=== PATIENT | female | born 1970 ===

== ENCOUNTER 2023-04-29 12:27 | Inpatient (IN) | payer OTHER ==
--- NOTE | 2023-04-29 13:00 | ED ---
Alcohol HPI - General Chief Complaint: Alcohol Stated Complaint: ETOH Time Seen by Provider: 04/29/23 12:33 Source: patient, EMS Mode of arrival: EMS Limitations: no limitations - History of Present Illness Initial Comments: Patient is a 52-year-old woman who presents because she states she is feeling really badly drunk. Patient states that she drinks probably a fifth per day going on for quite some time now. She states when she tries to stop drinking she gets very anxious and shaky. Patient denies having recent fall or trauma. Denies pain. 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) Recent Trauma: No Associated Symptoms: denies other symptoms Treatments Prior to Arrival: none Chronic Alcohol Use: Yes - Related Data Home Medications Medication Instructions Recorded Confirmed Magnesium(Unknown) 1 tab PO DAILY 04/29/23 04/29/23 Multivit-Min/FA/Lycopen/Lutein 1 tab PO DAILY 04/29/23 04/29/23 [Centrum Silver Tablet] Vitamin D3(Unknown) 1 tab PO DAILY 04/29/23 04/29/23 Allergies Allergy/AdvReac Type Severity Reaction Status Date / Time No Known Allergies Allergy Verified 04/29/23 17:03 Review of Systems ROS Statement: Those systems with pertinent positive or pertinent negative responses have been documented in the HPI. ROS Other: All systems not noted in ROS Statement are negative. Constitutional: Denies: fever, weakness Eyes: Denies: vision change Respiratory: Denies: cough, dyspnea Cardiovascular: Denies: chest pain, palpitations, edema Gastrointestinal: Reports: nausea. Denies: abdominal pain, vomiting, diarrhea, melena, hematochezia Genitourinary: Denies: dysuria, hematuria Musculoskeletal: Denies: back pain Skin: Denies: rash Neurological: Denies: headache, weakness Psychiatric: Reports: anxiety. Denies: suicidal thoughts Past Medical History Past Medical History: No Reported History History of Any Multi-Drug Resistant Organisms: None Reported Past Surgical History: No Surgical Hx Reported Past Psychological History: No Psychological Hx Reported Smoking Status: Never smoker Past Alcohol Use History: Abuse Past Drug Use History: Marijuana General Exam Limitations: no limitations General appearance: alert, in no apparent distress, appears intoxicated Head exam: Present: atraumatic, normocephalic Eye exam: Present: normal appearance, nystagmus. Absent: scleral icterus, conjunctival injection Neck exam: Present: normal inspection, full ROM. Absent: tenderness Respiratory exam: Present: normal lung sounds bilaterally. Absent: respiratory distress, wheezes, rales, rhonchi, stridor, chest wall tenderness Cardiovascular Exam: Present: regular rate, normal rhythm, normal heart sounds. Absent: systolic murmur, diastolic murmur, rubs, gallop GI/Abdominal exam: Present: soft. Absent: distended, tenderness, guarding, rebound Extremities exam: Present: normal inspection, normal capillary refill Back exam: Present: normal inspection. Absent: vertebral tenderness Neurological exam: Present: alert, CN II-XII intact. Absent: motor sensory deficit Skin exam: Present: warm, dry, intact, normal color. Absent: rash Course Vital Signs 04/29/23 04/29/23 04/29/23 12:34 13:41 16:10 Temperature 98.4 F Pulse Rate 85 82 90 Pulse Rate [ Left] Respiratory 18 18 18 Rate Blood Pressure 111/83 106/83 101/75 Blood Pressure [Right Arm] O2 Sat by Pulse 95 100 94 L Oximetry 04/29/23 04/29/23 18:54 20:00 Temperature 98.7 F Pulse Rate 97 87 Pulse Rate [ 85 Left] Respiratory 18 20 Rate Blood Pressure 101/71 113/83 Blood Pressure 144/91 [Right Arm] O2 Sat by Pulse 97 98 Oximetry Medical Decision Making - Medical Decision Making Was pt. sent in by a medical professional or institution ( PA, SENIOR JAVA DEVELOPER, urgent care, hospital, or residential...) When possible be specific @ - Did you speak to anyone other than the patient for history (EMS, parent, family, police, friend...)? What history was obtained from this source @ -[EMS gave history Did you review nursing and triage notes (agree or disagree)? Why? @ -[I reviewed and agree with nursing and triage notes] Were old charts reviewed (outside hosp., previous admission, EMS record, old EKG, old radiological studies, urgent care reports/EKG's, residential records)? Report findings @ -[No old charts were reviewed] Differential Diagnosis (chest pain, altered mental status, abdominal pain women, abdominal pain men, vaginal bleeding, weakness, fever, dyspnea, syncope, headache, dizziness, GI bleed, back pain, seizure, CVA, palpatations, mental health, musculoskeletal)? @ -[Differential Altered Mental Status: Hypoglycemia, DKA, hypercapnia, ETOH, overdose, CO poisoning, trauma, myxedema coma, HTN encephalopathy, infection, encephalitis, psychosis, intercranial hemorrhage, hepatic encephalopathy, meningitis, CVA, this is not meant to be an all-inclusive list EKG interpreted by me (3pts min.). @ -[As above] X-rays interpreted by me (1pt min.). @ -[None done] CT interpreted by me (1pt min.). @ -[None done] U/S interpreted by me (1pt. min.). @ -[None done] What testing was considered but not performed or refused? (CT, X-rays, U/S, labs )? Why? @ -[None] What meds were considered but not given or refused? Why? @ -[None] Did you discuss the management of the patient with other professionals (professionals i.e. , PA, SENIOR JAVA DEVELOPER, lab, RT, psych nurse, social media developer, business lawyer, teacher, soil science technical officer, manager rn case)? Give summary @ -[Case discussed with admitting physician and treatment recommendations incorporated Was smoking cessation discussed for >3mins.? @ -[No] Was critical care preformed (if so, how long)? @ -[No] Were there social determinants of health that impacted care today? How? (Homelessness, low income, unemployed, alcoholism, drug addiction, transportation, low edu. Level, literacy, decrease access to med. care, residential, rehab)? @ -[No] Was there de-escalation of care discussed even if they declined (Discuss DNR or withdrawal of care, Hospice)? DNR status @ -[No] What co-morbidities impacted this encounter? (DM, HTN, Smoking, COPD, CAD, Cancer, CVA, ARF, Chemo, Hep., AIDS, mental health diagnosis, sleep apnea, morbid obesity)? @ -[None] Was patient admitted / discharged? Hospital course, mention meds given and route, prescriptions, significant lab abnormalities, going to OR and other pertinent info. @ -[Given the patient's level of alcohol consumption and there is significant risk of impending delirium tremens. Patient is admitted to have [facility] protocol Undiagnosed new problem with uncertain prognosis? @ -[No] Drug Therapy requiring intensive monitoring for toxicity (Heparin, Nitro, Insulin, Cardizem)? @ -[No] Were any procedures done? @ -[No] Diagnosis/symptom? @ -[Acute alcohol intoxication Acute, or Chronic, or Acute on Chronic? @ -[Acute Uncomplicated (without systemic symptoms) or Complicated (systemic symptoms)? @ -[Complicated by mental status change Side effects of treatment? @ -[No] Exacerbation, Progression, or Severe Exacerbation? @ -[No] Poses a threat to life or bodily function? How? (Chest pain, USA, DC, pneumonia, PE, COPD, DKA, ARF, appy, cholecystitis, CVA, Diverticulitis, Homicidal, Suicidal, threat to staff... and all critical care pts) @ -[No] - Lab Data Result diagrams: 04/30/23 07:53 04/30/23 11:40 Lab Results 04/29/23 04/29/23 Range/Units 13:44 13:44 WBC 3.7 L (3.8-10.6) k/uL RBC 4.52 (3.80-5.40) m/uL Hgb 15.3 (11.4-16.0) gm/dL Hct 45.2 (34.0-46.0) % MCV 100.1 H (80.0-100.0) fL MCH 33.9 (25.0-35.0) pg MCHC 33.9 (31.0-37.0) g/dL RDW 13.8 (11.5-15.5) % Plt Count 253 (150-450) k/uL MPV 7.4 Neutrophils % (Manual) 39 % Lymphocytes % (Manual) 37 % Monocytes % (Manual) 11 % Eosinophils % (Manual) 12 % Basophils % (Manual) 1 % Neutrophils # (Manual) 1.44 (1.3-7.7) k/uL Lymphocytes # (Manual) 1.37 (1.0-4.8) k/uL Monocytes # (Manual) 0.41 (0-1.0) k/uL Eosinophils # (Manual) 0.44 (0-0.7) k/uL Basophils # (Manual) 0.04 (0-0.2) k/uL Nucleated RBCs 0 (0-0) /100 WBC Manual Slide Review Performed Sodium 145 (137-145) mmol/L Potassium 4.4 (3.5-5.1) mmol/L Chloride 108 H (98-107) mmol/L Carbon Dioxide 27 (22-30) mmol/L Anion Gap 10 mmol/L BUN 10 (7-17) mg/dL Creatinine 0.42 L (0.52-1.04) mg/dL Est GFR (CKD-EPI)AfAm >90 (>60 ml/min/1.73 sqM) Est GFR (CKD-EPI)NonAf >90 (>60 ml/min/1.73 sqM) Glucose 87 (74-99) mg/dL Calcium 9.6 (8.4-10.2) mg/dL Magnesium 1.5 L (1.6-2.3) mg/dL Total Bilirubin 0.5 (0.2-1.3) mg/dL AST 236 H (14-36) U/L ALT 69 H (4-34) U/L Alkaline Phosphatase 62 (38-126) U/L Total Protein 8.0 (6.3-8.2) g/dL Albumin 4.4 (3.5-5.0) g/dL Serum Alcohol 406 H* mg/dL Disposition Clinical Impression: Alcoholic intoxication, Alcohol withdrawal Disposition: ADMITTED IP TO THIS HOSP Condition: Stable Is patient prescribed a controlled substance at d/c from ED?: No
[2023-04-29 14:09] LABS: HCT 45.2 % (34.0-46.0); HGB 15.3 gm/dL (11.4-16.0); MCH 33.9 pg (25.0-35.0); MCHC 33.9 g/dL (31.0-37.0); MCV 100.1 fL (80.0-100.0); Mean Platelet Volume 7.4; Platelet Count 253 k/uL (150-450); RBC 4.52 m/uL (3.80-5.40); RDW 13.8 % (11.5-15.5); WBC 3.7 k/uL (3.8-10.6)
[2023-04-29 14:13] LABS: ALT 69 U/L (4-34); AST 236 U/L (14-36); African American GFR (CKD) >90 (>60 ml/min/1.73 sqM); Albumin 4.4 g/dL (3.5-5.0); Alkaline Phosphatase 62 U/L (38-126); Anion Gap 10 mmol/L; Blood Urea Nitrogen 10 mg/dL (7-17); Calcium 9.6 mg/dL (8.4-10.2); Carbon Dioxide 27 mmol/L (22-30); Chloride 108 mmol/L (98-107); Glucose 87 mg/dL (74-99); Magnesium 1.5 mg/dL (1.6-2.3); Non-African American GFR(CKD) >90 (>60 ml/min/1.73 sqM); Potassium 4.4 mmol/L (3.5-5.1); Sodium 145 mmol/L (137-145); Total Bilirubin 0.5 mg/dL (0.2-1.3)
[2023-04-29 14:24] LABS: Alcohol 406 mg/dL
[2023-04-29 14:31] LABS: Basophils # (M) 0.04 k/uL (0-0.2); Eosinophils # (M) 0.44 k/uL (0-0.7); Lymphocytes # (M) 1.37 k/uL (1.0-4.8); Monocytes # (M) 0.41 k/uL (0-1.0); Neutrophils # (M) 1.44 k/uL (1.3-7.7); Neutrophils % (M) 39 %; Nucleated Red Blood Cells 0 /100 WBC (0-0); Total Cells Counted 100
[2023-04-29] MEDS ORDERED: LORazepam 0.5 MG TAB PO PRN (16:20)
[2023-04-29] MEDS ORDERED: LORazepam 1 MG TAB PO PRN ×2 (16:20)
[2023-04-29] MEDS ORDERED: THIAMINE 100 MG/ML 2 ML VIAL IM STA (16:20)
[2023-04-29] MEDS ORDERED: LORazepam 2 MG/ML INJ IV PRN ×3 (16:20)
[2023-04-29] MEDS ORDERED: SODIUM CHLORIDE 0.9% 1,000 ML IV STA (16:23)
[2023-04-29] MEDS ORDERED: NALOXONE 0.4 MG/ML 1 ML VIAL IV PRN (16:45)
--- NOTE | 2023-04-29 16:49 | P.HPIM ---
History of Present Illness H&P Date: 04/29/23 History of Presenting Illness: Patient is a 52-year-old female with a past medical history of daily alcohol abuse reportedly drinking approximately a fifth or more of alcohol per day. She presented to the emergency department via EMS after being sent from [address] where she reportedly blew a breathalyzer of 0.4%. Patient sent to our facility for alcohol intoxication and need for medical detox. She reports drinking excessively prior to going to her appointment at [address] for admission. Patient reports she wants to stop drinking and has been drinking daily for very long time, many years. In addition patient reports daily cannabis use. She denies smoking cigarettes and denies any other drug use. Patient denies having any other medical history including cardiac disease, pulmonary disease, hypertension, hyperlipidemia, or diabetes. Patient currently denies having any complaints including headache, lightheadedness, dizziness, chest pain, palpitations, shortness of breath, abdominal pain, nausea, vomiting, or experiencing any numbness/tingling/weakness/swelling in her extremities. She denies history of withdrawal seizures and denies previous ICU stays for alcohol withdrawal. She underwent full evaluation in the emergency department. Vital signs upon arrival show blood pressure 111/83, heart rate 85, respiratory rate 18, temp 98.4 F, and SpO2 of 95% on room air. Labs completed and reviewed. CBC showing leukopenia with WBC count of 3.7 and macrocytosis with MCV of 100.1. BMP revealing hyperchloremia with chloride of 108 otherwise normal findings. Liver profile showing elevated AST of 236 and ALT of 69. Magnesium was low at 1.5. Serum alcohol level was elevated at 406. Patient admitted under our services for alcohol intoxication and need for medical detox. Review of systems: Pertinent positives and negatives as discussed in HPI, a complete review of systems was performed and all other systems are negative. Physical exam: Vital signs reviewed and stable. General: Nontoxic, no distress and appears stated age. Derm: Skin warm and dry, normal coloration for ethnicity. Head: Atraumatic, normocephalic and symmetric. Eyes: EOMs intact, no lid lag, and anicteric sclera Mouth: no lip lesions, mucus membranes moist Cardiovascular: regular rate and rhythm with normal S1S2, no murmur, positive posterior tibial pulses bilaterally, and cap refill < 2 seconds. Lungs: Respirations even, regular, and unlabored on room air. Lungs CTA bilaterally, no rhonchi, no rales, no wheezing, and no accessory muscle usage. Abdominal: soft, nontender to palpation, no guarding, no appreciable organomegaly Ext: ROM intact. No gross muscle atrophy, no edema, no contractures Neuro: Speech clear, face symmetrical and CN II-XII grossly intact with no noted focal neuro deficits Psych: Alert and oriented to person, place, time, and situation. Appropriate and pleasant affect. Assessment and Plan of Care: Alcohol intoxication, pending withdrawal Longstanding history of daily alcohol abuse -Order placed for monitoring of CIWA scores and patient to be medicated with Ativan 0.5 mg every 4 hours as needed for CIWA score of 4-5, Ativan 1 mg every 4 hours for CIWA score of 6-7, Ativan 2 mg every 3 hours CIWA score of 8-9, and Ativan 2 mg every 2 hours forr CIWA score of 10 or greater. -Continuous IV hydration. -Thiamine 100 mg twice a day -Multivitamin daily -Folate 1 mg daily -Seizure, fall, aspiration, and elopement precautions in place. -Urine drug screen -Continued close monitoring of electrolytes and replace as needed. -Telemetry monitoring. Daily cannabis use disorder Recommend cessation of use. Data and imaging reviewed: As stated above in HPI The patient is admitted with an anticipated less than 2 midnight stay for evaluation of alcohol intoxication CODE STATUS: Full code DVT prophylaxis: Heparin Anticipated discharge date: Clinical course to be determined Anticipated discharge place: Clinical course to determine Patient was seen independently by Nurse Practitioner. This document was prepared using [employer] dictation software. Please allow for errors in clerk cashier while rare they do occur. Blair Small NP rendered care for this patient independently, reviewed the findings and plan as documented in the note above. I did not physically speak with or examine the patient on this date. Past Medical History Past Medical History: No Reported History History of Any Multi-Drug Resistant Organisms: None Reported Past Surgical History: No Surgical Hx Reported Past Psychological History: No Psychological Hx Reported Smoking Status: Never smoker Past Alcohol Use History: Abuse Past Drug Use History: Marijuana Medications and Allergies Allergies Allergy/AdvReac Type Severity Reaction Status Date / Time No Known Allergies Allergy Verified 04/29/23 17:03 Physical Exam Osteopathic Statement: *. No significant issues noted on an osteopathic structural exam other than those noted in the History and Physical/Consult. Vitals: Vital Signs Temp Pulse Resp BP Pulse Ox 04/29/23 16:10 90 18 101/75 94 L 04/29/23 13:41 82 18 106/83 100 04/29/23 12:34 98.4 F 85 18 111/83 95 Intake and Output 04/29/23 04/29/23 04/29/23 06:59 14:59 22:59 Other: Weight 54.431 kg Results CBC & Chem 7: 04/29/23 13:44 04/29/23 13:44 Labs: Abnormal Lab Results - Last 24 Hours (Table) 04/29/23 04/29/23 Range/Units 13:44 13:44 WBC 3.7 L (3.8-10.6) k/uL MCV 100.1 H (80.0-100.0) fL Chloride 108 H (98-107) mmol/L Creatinine 0.42 L (0.52-1.04) mg/dL Magnesium 1.5 L (1.6-2.3) mg/dL AST 236 H (14-36) U/L ALT 69 H (4-34) U/L Serum Alcohol 406 H* mg/dL
[2023-04-29] MEDS: SODIUM CHLORIDE 0.9% 1,000 ML IV SCH (17:35)
[2023-04-29] MEDS: MAGNESIUM SULFATE-D5W PMX 1 GM in DEXTROSE/WATER 1 100ML.BAG IVPB SCH ×3 (17:38→20:12)
[2023-04-29 19:38] LABS: Amphetamine Screen,Urine Not Detected (NotDetected); Barbiturate Screen,Urine Not Detected (NotDetected); Benzodiazepines Screen,Urine Not Detected (NotDetected); Cocaine Screen,Urine Not Detected (NotDetected); Methadone Screen, Urine Not Detected (NotDetected); Opiate Screen,Urine Not Detected (NotDetected); Oxycodone Screen, Urine Not Detected (NotDetected); Phencyclidine Screen,Urine Not Detected (NotDetected); Tricyclic Antidepressant,Urine Not Detected (NotDetected); Urn Cannabinoid Scrn Detected (NotDetected)
[2023-04-30] MEDS: HEPARIN SODIUM,PORCINE 5,000 UNIT/ML 1 ML VIAL SQ SCH ×2 (00:01→07:26)
[2023-04-30] MEDS: SODIUM CHLORIDE 0.9% 1,000 ML IV SCH ×2 (00:01→07:27)
[2023-04-30 08:47] LABS: HCT 41.1 % (34.0-46.0); HGB 13.8 gm/dL (11.4-16.0); MCH 33.6 pg (25.0-35.0); MCHC 33.6 g/dL (31.0-37.0); MCV 99.8 fL (80.0-100.0); Platelet Count 180 k/uL (150-450); RBC 4.11 m/uL (3.80-5.40); RDW 13.7 % (11.5-15.5); WBC 4.5 k/uL (3.8-10.6)
[2023-04-30] MEDS ORDERED: THIAMINE 100 MG TAB PO SCH (09:00)
[2023-04-30] MEDS ORDERED: FOLIC ACID 1 MG TAB PO SCH (09:30)
[2023-04-30] MEDS ORDERED: MULTIVITAMINS, THERA 1 EACH TAB PO SCH (09:30)
[2023-04-30 12:15] LABS: ALT 44 U/L (4-34); AST 137 U/L (14-36); African American GFR (CKD) >90 (>60 ml/min/1.73 sqM); Albumin 3.5 g/dL (3.5-5.0); Albumin/Globulin Ratio 1.1; Alkaline Phosphatase 55 U/L (38-126); Anion Gap 6 mmol/L; Blood Urea Nitrogen 7 mg/dL (7-17); Calcium 8.1 mg/dL (8.4-10.2); Carbon Dioxide 20 mmol/L (22-30); Chloride 108 mmol/L (98-107); Globulin 3.3 g/dL; Glucose 91 mg/dL (74-99); Magnesium 1.5 mg/dL (1.6-2.3); Non-African American GFR(CKD) >90 (>60 ml/min/1.73 sqM); Sodium 134 mmol/L (137-145); Total Protein 6.8 g/dL (6.3-8.2)
[2023-04-30 12:19] LABS: Potassium 4.5 mmol/L (3.5-5.1)
[2023-04-30] MEDS ORDERED: MAGNESIUM OXIDE 400 MG TAB PO STA (13:20)
--- NOTE | 2023-04-30 13:20 | P.DS ---
Providers Date of admission: 04/29/23 16:46 Expected date of discharge: 04/30/23 Attending physician: Catherine Reno DO Primary care physician: Stated None Hospital Course: Discharge Diagnosis: Alcohol intoxication, clinically sober at this time. Transaminitis, likely due to ETOH Pending alcohol withdrawal, recommending cessation of any and all alcohol use and returning to [place] for inpatient rehab. Longstanding history of daily alcohol abuse Hypomagnesemia, replaced. Recommend continuation of daily magnesium supplements. Daily cannabis use disorder. Recommend cessation of use. Hospital Course: Patient is a 52-year-old female with a past medical history of daily alcohol abuse reportedly drinking approximately a fifth or more of alcohol per day. She presented to the emergency department via EMS after being sent from [place] where she reportedly blew a breathalyzer of 0.4%. Patient sent to our facility for alcohol intoxication and need for medical detox. She reports drinking excessively prior to going to her appointment at [place] for admission. Patient reports she wants to stop drinking and has been drinking daily for very long time, many years. In addition patient reports daily cannabis use. She denies smoking cigarettes and denies any other drug use. Patient denies having any other medical history including cardiac disease, pulmonary disease, hypertension, hyperlipidemia, or diabetes. Patient currently denies having any complaints including headache, lightheadedness, dizziness, chest pain, palpitations, shortness of breath, abdominal pain, nausea, vomiting, or experiencing any numbness/tingling/weakness/swelling in her extremities. She denies history of withdrawal seizures and denies previous ICU stays for alcohol withdrawal. She underwent full evaluation in the emergency department. Vital signs upon arrival show blood pressure 111/83, heart rate 85, respiratory rate 18, temp 98.4 F, and SpO2 of 95% on room air. Labs completed and reviewed. CBC showing leukopenia with WBC count of 3.7 and macrocytosis with MCV of 100.1. BMP revealing hyperchloremia with chloride of 108 otherwise normal findings. Liver profile showing elevated AST of 236 and ALT of 69. Magnesium was low at 1.5. Serum alcohol level was elevated at 406. Patient admitted under our services for alcohol intoxication and need for medical detox. Patient is clinically sober at this time. She is medically stable for discharge. Patient highly recommended to avoid any and all alcohol use and return to [place] for inpatient rehab. Physical exam: Vital signs reviewed and stable. General: Nontoxic, no distress and appears stated age. Derm: Skin warm and dry, normal coloration for ethnicity. Head: Atraumatic, normocephalic and symmetric. Eyes: EOMs intact, no lid lag, and anicteric sclera Mouth: no lip lesions, mucus membranes moist Cardiovascular: regular rate and rhythm with normal S1S2, no murmur, positive posterior tibial pulses bilaterally, and cap refill < 2 seconds. Lungs: Respirations even, regular, and unlabored on room air. Lungs CTA bilaterally, no rhonchi, no rales, no wheezing, and no accessory muscle usage. Abdominal: soft, nontender to palpation, no guarding, no appreciable organomegaly Ext: ROM intact. No gross muscle atrophy, no edema, no contractures Neuro: Speech clear, face symmetrical and CN II-XII grossly intact with no noted focal neuro deficits Psych: Alert and oriented to person, place, time, and situation. Appropriate and pleasant affect. A total of 33 minutes of time were spent preparing this complex discharge summary. Pt was discharged on 04/30/2023 at 1:16 PM. Patient was seen independently by Nurse Practitioner. This document was prepared using [employer] dictation software. Please allow for errors in casino dealer while rare they do occur. Blair Small NP rendered care for this patient independently, reviewed the findings and plan as documented in the note above. I did not physically speak with or examine the patient on this date. Patient Condition at Discharge: Stable Plan - Discharge Summary Discharge Rx Participant: No New Discharge Prescriptions: Continue Multivit-Min/FA/Lycopen/Lutein [Centrum Silver Tablet] 1 tab PO DAILY Vitamin D3(Unknown) 1 tab PO DAILY Magnesium(Unknown) 1 tab PO DAILY Discharge Medication List Magnesium(Unknown) 1 tab PO DAILY 04/29/23 [History] Multivit-Min/FA/Lycopen/Lutein [Centrum Silver Tablet] 1 tab PO DAILY 04/29/23 [History] Vitamin D3(Unknown) 1 tab PO DAILY 04/29/23 [History] Follow up Appointment(s)/Referral(s): None,Stated [Primary Care Provider] - 1-2 days Patient Instructions/Handouts: Heart Healthy Diet (DC), Abuse of Alcohol (DC), Alcohol Withdrawal (DC), Low-Sodium Diet (DC) Activity/Diet/Wound Care/Special Instructions: Activity: As tolerated. Take breaks as needed. Diet: Heart healthy and carb consistent diet. Avoid salts, or foods with hidden salts such as canned or boxed foods and frozen dinners. Extra salt makes your heart work harder and traps the fluid in your body for longer. Special Instructions: Strongly recommend avoidance of any and all alcohol use, recommend returning to [place] for inpatient rehab. Recommend continuation of your daily magnesium supplements as your magnesium was low in the hospital. Thank you for allowing us to participate in your care, it was truly a pleasure having you for our patient!!! Discharge/Stand Alone Forms: AA Meetings [facility] - [facility], AA Meetings [facility], Who Do I Call?, Community Resources, Outpatient Counseling Discharge Disposition: HOME SELF-CARE
[2023-04-30 14:18] VITALS: BP 159/97; PULSE 94; RESP 20; TEMP 98
== END 2023-04-30 14:35 | disposition other institution (70) | DRG 897 ==
LOC: EC 12:27 → 5NMEDONC 16:46
PROVIDERS: ADMIT Internal Medicine; ATTEND Internal Medicine
PROC: HZ2ZZZZ Detoxification Services for Substance Abuse Treatment (ICD-10-PCS; principal; 2023-04-29)
DX: F10.129 Alcohol abuse with intoxication, unspecified (principal); Y90.8 Blood alcohol level of 240 mg/100 ml or more; F10.139 Alcohol abuse with withdrawal, unspecified; R74.01 Elevation of levels of liver transaminase levels; E83.42 Hypomagnesemia; F12.10 Cannabis abuse, uncomplicated; D72.819 Decreased white blood cell count, unspecified; D75.89 Other specified diseases of blood and blood-forming organs; E87.8 Other disorders of electrolyte and fluid balance, not elsewhere classified; Z28.310 Unvaccinated for COVID-19; Z71.41 Alcohol abuse counseling and surveillance of alcoholic; Z71.51 Drug abuse counseling and surveillance of drug abuser
CPT/HCPCS: 36415; 80053; 80306; 80320; 83735; 85025; 85027; 96365; 96366; 99285